=== PATIENT | male | born 1990 | race African-American/Black ===

== ENCOUNTER 2020-12-21 19:51 | Emergency (ER) | payer OTHER ==
[~2020-12-21] VITALS: Ht 165.1 cm; Wt 72.6 kg
[~2020-12-21 19:51] MED LIST: SUDAFED 12-HOU120 MG PO
[2020-12-21] MEDS ORDERED: CYCLOBENZAPRINE10 MG PO (22:46)
== END 2020-12-21 23:25 | disposition home or self-care (01) ==
LOC: ED 19:51
DX: M54.5 Low back pain (principal)
CPT/HCPCS: 99283